=== PATIENT | male | born 1950 | race Caucasian/White ===

== ENCOUNTER → 2016-11-01 | Day surgery (SDC) | payer MEDICARE ==
[~2016-11-01] MED LIST: GLUCOSAMINE500 M1 PO; LISINOPRIL-HCTZ1 T18 PO; LORTAB 10/500 T1 TAB; LOSARTAN-HCTZ1 EAC2 PO; LOSARTAN-HCTZ1 EACH PO; METHADONE; MULTI-VIT/MIN P1 TAB PO; PRAVACHOL20 MG PO; PROZAC PO; TRIGOSAMINE; VIT B6
--- NOTE | ~2016-11-01 | OR ---
Unit #: [id number] #: [id number] Patient: BENSON JAVIER V [id number] [address] [place], [place] [address] [id number] O MR#: [id number] NAME: BENSON JAVIER V. ROOM: Date of Procedure: 11/01/2016 Admission Date: 11/01/2016 Surgeon: Jae Pollack M.D. : 1950 Attending Physician: Jae Pollack M.D. Primary Care Physician: Sumanth Huynh Jr., M.D. OPERATIVE REPORT PRIMARY CARE PHYSICIAN Sumanth Huynh M.D. PREOPERATIVE DIAGNOSES Colorectal cancer surveillance. The patient has personal history of colon polyps. PROCEDURES PERFORMED Colonoscopy and polypectomy. POSTOPERATIVE DIAGNOSES 1. The patient had two sessile polyps, one each in the transverse colon and mid ascending colon. Both were removed using snare polypectomy. Both were sessile. 2. Rest of the examination up to cecum was normal. The quality of the prep was excellent. RECOMMENDATIONS 1. Follow up the results of polyp histology. 2. Repeat colonoscopy in 5 years. SEDATION USED MAC. DESCRIPTION OF PROCEDURE Following detailed explanation of potential risks and complications of a colonoscopy, namely perforation, bleeding, complication related to sedation, the patient was brought to GI lab and laid in the left lateral decubitus position. A digital rectal examination was performed, which was normal. Lubricated tip of the Olympus video colonoscope was inserted through the anus and advanced under direct vision. The scope was advanced past rectosigmoid into descending colon. No diverticula were noted in this area. The scope tip was then navigated all the way up to cecum with visualization of the ileocecal valve and the appendiceal orifice. Preparation was excellent with good visualization and photodocumentation was obtained. Successive segments of the colonic mucosa were examined upon withdrawal. The patient was noted to have two sessile polyps, the first one was in the mid ascending colon and the second one in the distal transverse colon. The polyps ranged in size from 6 to 7 mm each. Both were removed using snare polypectomy. They were retrieved and sent for histology. No additional polyps were noted. The patient did not have any diverticulosis nor any hemorrhoids. The scope was then withdrawn and the Unit #: [id number] #: [id number] Patient: BENSON JAVIER V patient returned to the recovery area. He tolerated the procedure without any postprocedure complications. Dictated by... Amanda Mosher TD: 11/01/2016 13:36 JOB #: [id number] OPERATIVE REPORT Page 1 of 1 X Jae Pollack MD PROCEDURE OPERATIVE NOTE
== END | disposition home or self-care (01) ==
LOC: COPS 08:21
DX: Z12.11 Encounter for screening for malignant neoplasm of colon (principal); D12.3 Benign neoplasm of transverse colon; D12.2 Benign neoplasm of ascending colon; I10 Essential (primary) hypertension; Z86.010 Personal history of colon polyps; Z85.821 Personal history of Merkel cell carcinoma; Z79.899 Other long term (current) drug therapy; Z98.890 Other specified postprocedural states; Z98.818 Other dental procedure status
CPT/HCPCS: 88305; J2250